=== PATIENT | female | born 1970 | race Hispanic/Latino ===

== ENCOUNTER 2016-07-17 00:18 | Emergency (ER) | payer BC ==
[2016-07-17 00:41] VITALS: RESP 16; TEMP 98.9
--- NOTE | 2016-07-17 02:40 | ED PDOC ---
HPI: Trauma/Fall - HPI Time Seen by Provider: 07/17/16 02:18 Chief Complaint (Nursing): Trauma Chief Complaint (Provider): slipped and fell while playing football with friends History Per: Patient, Other () History/Exam Limitations: no limitations Onset/Duration Of Symptoms: Hrs Injury Occurred (Timing): Just Before Arrival Description Of Injury (Context): Per pt and , they were playing football with friends, pt attempted Location Of Injury: Anterior: Head (on the chin) Anterior Full Body: 1 - abrasion 2 - abrasion 3 - abrasion 4 - abrasion 5 - 1cm laceration 6 - abrasion Severity: Mild Pain Scale Rating Of: 6 Associated Symptoms: denies: LOC, Memory Impairment Additional History Per: Patient, Family Additional Complaint(s): Per pt and , pt was playing football, attempted to catch the ball, flipped and landed face first on the floor, broke her tooth, suffered a laceration on her chin and multiple abrasions. Pt reports she feels the most pain from losing her teeth and biting her inner lip; but the lacerations and abrasions are not that painful. Event happend maybe an hour prior to arriving here. fall was witnessed, no loss of consciousness, vision changes, nausea or vomiting. denies having a headache, sob, chest pain or dizziness right now. - Fall Fall:Prior To Injury: Slipped Past Medical History Vital Signs: Last Vital Signs Temp 98.9 F 07/17/16 00:38 Pulse 75 07/17/16 04:06 Resp 16 07/17/16 04:06 BP 110/72 07/17/16 04:06 Pulse Ox 100 07/17/16 04:06 - Medical History PMH: No Chronic Diseases - Family History Family History: States: Unknown Family Hx - Allergies Allergies/Adverse Reactions: Allergies Allergy/AdvReac Type Severity Reaction Status Date / Time No Known Allergies Allergy Verified 07/17/16 02:08 Review of Systems ROS Statement: Except As Marked, All Systems Reviewed And Found Negative Physical Exam - Physical Exam Appears: Positive for: No Acute Distress Head Exam: Positive for: NORMOCEPHALIC (1 cm laceration on chin, 2 abrasions around the mouth.) Skin: Positive for: Normal Color Eye Exam: Positive for: Normal appearance, EOMI, PERRL ENT: Negative for: Sinus Pain/Drainage, Nasal Congestion, Pharyngeal Erythema, Tonsillar Swelling Neck: Positive for: Normal, Supple. Negative for: Painless ROM Cardiovascular/Chest: Positive for: Regular Rate, Rhythm. Negative for: JVD, Murmur Respiratory: Positive for: Normal Breath Sounds. Negative for: Accessory Muscle Use, Respiratory Distress Gastrointestinal/Abdominal: Positive for: Normal Exam, Bowel Sounds, Soft. Negative for: Tenderness Extremity: Positive for: Normal ROM. Negative for: Calf Tenderness - ECG O2 Sat by Pulse Oximetry: 98 Medical Decision Making Medical Decision Making: Laceration on chin repaired Tdap vaccine given to pt toradol 30mg IM given to pt pt observed for 30mins, remained stabled, being discharged home Procedures - Time-Out Type of Procedure: laceration repay Site of Procedure: chin Correct Patient (with visual ID + MR# on ID Band): Yes Correct Procedure: Yes Correct Site Marked: Yes X-Ray Marked: NA Medication Reconciliation / Bloodwork / Allergies Checked: Yes Physician Name: Elo Kapadia - Laceration/Wound Repair Lower Face Wound Length (cm): 1 Wound's Depth, Shape: into muscle Wound Explored: clean Irrigated w/ Saline (ccs): 20 Betadine Prep?: No Anesthesia: 1% Lidocaine Volume Anesthetic (ccs): 10 Wound Debrided: minimal Wound Repaired With: Sutures Suture Size/Type: 4:0 Number of Sutures: 4 Layer Closure?: No Wound Complexity: Simple Disposition - Clinical Impression Clinical Impression: Laceration of face - Patient ED Disposition Is Patient to be Admitted: No - Disposition Disposition: Routine/Home Disposition Time: 03:35 Condition: STABLE Additional Instructions: please keep site of laceration dry ED precautions given to pt Instructions: Laceration (ED), Care For Your Absorbable Stitches (ED)
[2016-07-17] MEDS ORDERED: Lidocaine 1% w Epi 1:100,000 Inj IJ ONE (02:43)
[2016-07-17] MEDS ORDERED: Lidocaine 1% Inj (20ml) IJ ONE (02:45)
[2016-07-17] MEDS ORDERED: TDAP Vaccine 0.5 mL Syr IM ONE (03:19)
[2016-07-17 04:07] VITALS: BP 110/72; PULSE 75
[2016-07-17 05:51] VITALS: O2SAT 98
== END 2016-07-17 04:09 | disposition home or self-care (01) ==
LOC: H.ER 00:18
DX: S01.81XA Laceration without foreign body of other part of head, initial encounter (principal); W19.XXXA Unspecified fall, initial encounter; Y92.321 Football field as the place of occurrence of the external cause
CPT/HCPCS: 12011; 81025; 90471; 90715; 96372; 99282; J1885